=== PATIENT | male | born 1985 | race Caucasian/White ===

== ENCOUNTER 2021-07-08 14:33 | Emergency (ER) | payer OTHER | END 2021-07-08 18:19 | disposition home or self-care (01) | LOC: ER1 14:33 | DX: U07.1 COVID-19 (principal); J12.82 Pneumonia due to coronavirus disease 2019; Z88.8 Allergy status to other drugs, medicaments and biological substances; J45.909 Unspecified asthma, uncomplicated | CPT/HCPCS: 0240U; 71045; 99283 ==